=== PATIENT | male | born 1980 | race Two or more races ===

== ENCOUNTER 2024-01-10 07:56 | Outpatient (CLI) | payer OTHER | END 2024-01-10 08:08 | disposition home or self-care (01) | LOC: RAD 07:56 | PROVIDERS: ATTEND Surgery Surgery of the Hand | DX: M15.0 Primary generalized (osteo)arthritis (principal); D21.11 Benign neoplasm of connective and other soft tissue of right upper limb, including shoulder ==

== ENCOUNTER 2024-01-31 08:06 | Outpatient (CLI) | payer OTHER | END 2024-01-31 08:35 | disposition home or self-care (01) | LOC: RAD 08:06 | PROVIDERS: ATTEND Surgery Surgery of the Hand | DX: Z01.811 Encounter for preprocedural respiratory examination (principal) ==